=== PATIENT | female | born 1965 | race Caucasian/White ===

== ENCOUNTER → 2024-01-17 10:34 | Outpatient (REF) | payer OTHER, SELFPAY | LOC: HWRAD 10:34 | PROVIDERS: ATTENDING PHYSICIAN Emergency Medicine | DX: Z12.31 Encounter for screening mammogram for malignant neoplasm of breast (principal); N95.1 Menopausal and female climacteric states; Z78.0 Asymptomatic menopausal state | CPT/HCPCS: 77063; 77067; 77080 ==

== ENCOUNTER → 2024-01-21 14:24 | Outpatient (REF) | payer OTHER, SELFPAY | LOC: RAD 14:24 | PROVIDERS: ATTENDING PHYSICIAN Physician Assistant Medical | DX: J20.9 Acute bronchitis, unspecified (principal) | CPT/HCPCS: 71046 ==

== ENCOUNTER 2024-04-05 13:54 | Emergency (ER) | payer OTHER, SELFPAY ==
[2024-04-05 13:59] VITALS: BP 111/78
[2024-04-05 15:00] VITALS: BP 129/74
[2024-04-05] MEDS: VIBRAMYCIN 100 MG PO (16:14)
--- NOTE | 2024-04-05 16:17 | ED.GENMED ---
History of Present Illness
General
Chief Complaint: Skin Problem
Source: patient
Exam Limitations: none
Time Seen by Provider: 04/05/24 15:11
Nursing documentation reviewed up to this point in time: agreed with
History of Present Illness
History of Present Illness:
58-year-old female with past medical history of GERD IBS presenting to the emergency department today with concerns of red swollen left started few days ago gradually worsening mildly painful denies any specific inciting event or injuries. Denies
any fevers or systemic symptoms.
Past History
Past History
ED Past Medical History: Asthma, NIDDM, Hypothyroidism, Psychiatric, Other and Other
ED Past Surgical History: Cholecystectomy, Gynecological and Orthopedic
Social History
Tobacco: Non-smoker
Alcohol: Occasional
Drug: None
Personal:
Living: with family
Employment: Disabled
Family History
Family History: Other (Nothing significant)
Review of Systems
Review of Systems
Allergies reviewed?: Yes
All Other Systems: ROS reviewed and negative except as documented in HPI and ROS
Phy Exam
Physical Exam
Physical Exam:
GENERAL: Alert , in no apparent distress
EYE: pupils equal and reactive
NECK: Supple, no significant adenopathy.
ENT: o/p clr, mmm.
CARDIAC: Regular rate and rhythm .
LUNGS: Clear breath sounds bilaterally, no acute respiratory distress, no wheezes/rales/rhonchi
ABDOMEN: Soft, without focal tenderness, no r/g, no cvat
NEUROLOGICAL: Alert and oriented, no focal neuro deficits
SKIN: Warm and dry, skin intact.
MUSCULOSKELETAL: Redness and swelling mainly to the left fifth toe covers roughly 50% of the toe excluding the lateral portion mild tenderness. No breaks in the skin no fluctuance or induration., well perfused.
PSYCH: Normal and appropriate interaction.
Course
Orders/Labs/Results
Orders:
Orders
04/05/24 15:38
Doxycycline [Vibramycin] 100 mg PO NOW STA
CR Foot - Left Min 3 Views Urgent
Comment:
Reason For Exam: pinky toe redness pain
04/05/24 16:18
Bedside Glucose- Treatment ONCE
Abnormal Lab Results
04/05/24
16:45
POC Glucose 101 H mg/dl
(70-99)
Vital Signs
Initial and Last Documented VS:
Initial Vital Signs
Temp Pulse Resp BP Pulse Ox
98 F 62 18 111/78 98
04/05/24 13:59 04/05/24 13:59 04/05/24 13:59 04/05/24 13:59 04/05/24 13:59
Last Documented Vital Signs
Temp Pulse Resp BP Pulse Ox
98 F 62 18 111/78 98
04/05/24 13:59 04/05/24 13:59 04/05/24 13:59 04/05/24 13:59 04/05/24 13:59
MDM/Problems Addressed
MDM/Problems Addressed:
58-year-old female presenting to the emergency department with swollen red left pinky toe. Ongoing for the last few days no fevers no systemic symptoms. Concern the patient is diabetic patient treated for possible cellulitis. Advised to keep the
area clean and covered. Otherwise stable for discharge return precautions given. Patient was started on Doxy due to her multitude of allergies. Tolerated well here.
*Critical Care Note
Total Time (30-74mins, 75-104mins- exclusive of procedures): Not Applicable
ED Attending Note
-
Portions of this chart may have been created with voice recognition software.� Occasional wrong word or��sound alike� substitutions may have occurred due to the inherent limitations of voice recognition software.
Discharge Plan
Departure
Patient Disposition: Home (Routine Discharge)
Date of Disposition: 04/05/24
Time of Disposition: 17:43
Patient with high blood pressure during this ER visit?: No
Condition: Good
Covid-19: Not Applicable
Discharge Problem:
Infection of toe
Instructions: Cellulitis (Skin Infection), Adult (DC)
Prescriptions:
New
doxycycline hyclate 100 mg capsule
100 mg PO BID 7 Days Qty: 14 0RF
No Action
alprazolam 1 MG tablet
1 mg PO QPM
Patient Comments:
08/05/2022: last filled 06/30/22, 30 tabs for 30 days from [facility]#[id number]
levothyroxine 50 MCG tablet
50 mcg PO DAILY@0700
atorvastatin 10 MG tablet
10 mg PO DAILY
Jardiance 25 MG tablet
25 mg PO DAILY
Ozempic 0.25 MG/0.2 ML pen injector
1 mg SC SA
diphenhydramine HCl [Banophen] 50 MG capsule
50 mg PO HS PRN (Reason: sleep)
citalopram 20 MG tablet
20 mg PO DAILY
furosemide 20 MG tablet
20 mg PO DAILY
albuterol sulfate 1 PUFF HFA aerosol inhaler
2 puff inhalation R Q4 PRN (Reason: sob/wheezing)
polyethylene glycol 3350 17 GRAMS powder in packet
17 grams PO DAILY PRN (Reason: no bm>2 days) 14 Days Qty: 1 0RF
fenofibrate 160 mg Tablet
160 mg PO DAILY
Linzess 145 mcg Capsule
145 mcg PO DAILY
Trelegy Ellipta 200-62.5-25 mcg Blister With Device
1 inh INHALATION R DAILY
Motilium
20 mg PO TID
ondansetron 4 MG tablet,disintegrating
4 mg PO Q8 PRN (Reason: nausea/vomiting)
hydrocodone-acetaminophen 5-325 mg Tablet
1 tab PO Q6H PRN (Reason: moderate pain)
Patient Comments:
08/05/2022: last filled 07/04/22, 30 tabs for 10 days from [facility]#[id number]
Rx Instructions:
Pt. states not taking anymore.
Gummi Bear Multivitamin Tablet,Chewable
1 tab PO DAILY
mirtazapine [Remeron] 15 mg Tablet
15 mg PO HS
alum-mag hydroxide-simeth 400-400-40 mg/5 mL Suspension
10 ml PO BID PRN (Reason: heartburn) Qty: 0
benzonatate 100 mg capsule
100 mg PO TID PRN (Reason: cough) Qty: 20 0RF
lansoprazole [Prevacid] 30 mg Capsule,Delayed Release(Dr/Ec)
30 mg PO DAILY
dexamethasone 2 mg tablet
2 mg PO DAILY Qty: 15 0RF
Rx Instructions:
3 tabs daily for 2 days first dose 11/17/22, 2 tabs daily for 3 days, 1 tab daily for 3 days then stop
oxycodone-acetaminophen [Percocet] 5-325 mg Tablet
1 tab PO Q6HPRN PRN (Reason: pain) Qty: 5 0RF
dexamethasone 6 mg tablet
6 mg PO DAILY Qty: 4 0RF
benzonatate 100 mg capsule
100 mg PO TID PRN (Reason: Cough) Qty: 20 0RF
Referrals:
Maira Lucio MD [Family Provider] -
Activity Restrictions/Additional Instructions:
You came to the emergency department today with concerns of redness and swelling to the left toe. Please keep the area clean covered and follow close with the primary care doctor within 1 week for reassessment. Return to the emergency department
for any worsening, new or concerning symptoms.
Interventions
Interventions:
*Risk Screen - Suicide Last Done: 04/05/24 13:59
*General Assessment Last Done: 04/05/24 13:59
*Neglect/Abuse Screening Last Done: 04/05/24 13:59
Discharge Date and Time
Print Language: CAMBODIAN
[2024-04-05 16:47] LABS: Glucose - Point of Care 101 mg/dl (70-99)
[2024-04-05 17:00] VITALS: BP 118/74
[2024-04-05 18:31] VITALS: BP 115/76
== END 2024-04-05 18:32 | disposition home or self-care (01) ==
LOC: EMR 13:54
PROVIDERS: EMERGENCY PHYSICIAN Emergency Medicine; FAMILY PHYSICIAN Emergency Medicine
DX: L08.9 Local infection of the skin and subcutaneous tissue, unspecified (principal); J45.909 Unspecified asthma, uncomplicated; E11.9 Type 2 diabetes mellitus without complications; E03.9 Hypothyroidism, unspecified; K21.9 Gastro-esophageal reflux disease without esophagitis; K58.9 Irritable bowel syndrome, unspecified; Z90.49 Acquired absence of other specified parts of digestive tract
CPT/HCPCS: 99283; 73630; 82962

== ENCOUNTER 2025-04-07 06:29 | Day surgery (SDC) | payer OTHER, SELFPAY ==
[2025-04-07] VITALS (16 sets, daily range): BP systolic 110–128; BP diastolic 66–76; BMI 30.9
[2025-04-07 07:23] LABS: Glucose - Point of Care 111 mg/dl (70-99)
[2025-04-07] MEDS: LOW STRENGTH ASPIRIN 324 MG PO (07:24)
[2025-04-07] MEDS: NSS 269 ML IV (07:30)
--- NOTE | 2025-04-07 12:02 | ITS.CL.CATH ---
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
Cardiac Catheterization
Procedure Report:
LEFT HEART CATHETERIZATION
Date of Procedure: April 07, 2025
Referring: Dr. Camilo Nowak
PROCEDURES:
1. Left heart catheterization with coronary and single-plane left ventriculography
INDICATION: This is a 59-year-old female with a chronic history of substernal chest pressure. 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
hypothyroidism. She has a long history of substernal chest pressure and has been evaluated on multiple occasions with stress test in March 2020 and June of 2022. She was reevaluated by Dr. Nowak and is now referred for coronary angiography.
Patient had been tried on isosorbide mononitrate but stopped this medication after 4 days secondary to headache. She has multiple drug intolerances and allergies. Currently on no antianginal.
ACCESS: Right radial artery, 6 Vietnamese sheath
HEMODYNAMICS : (mmHg)
AO (s/d) : 126/79, 100
LV (s/d) : 128/10
LVEDP : 24
CORONARY FINDINGS
DOMINANCE: Normal
LEFT MAIN: Normal
LEFT ANTERIOR DESCENDING: The LAD arises normally from the left main and runs in the anterior interventricular groove. The LAD has only minor irregularities over its course and wraps completely around the apex supplying a significant portion of the
inferior wall.
CIRCUMFLEX: The circumflex is a medium caliber nondominant vessel. OM1 arises very proximally from the circumflex and runs in a distribution typical of a ramus intermedius. The AV circumflex terminates in a small bifurcating OM 2 that has a 90%
stenosis in its midportion just proximal to bifurcation into 2 small daughter branches.
RIGHT CORONARY ARTERY: The right coronary artery is a medium caliber dominant vessel with a 30% mid stenosis. The PDA is widely patent.
VENTRICULOGRAPHY: Left ventriculography is performed in MCKENZIE projection. The digital single-plane left ventricular ejection fraction is estimated at 60% and no regional wall motion maladies are noted.
SEDATION: 46 minutes of procedural sedation was utilized. An independent emergency medical tech was present to assist with and help manage the patient's level of consciousness and physiologic status.
RADIATION SUMMARY: Fluoro Time (min): 4.3, Dose (mGy): 379, DAP (Gy.cm2) : 26.8
Closure Device: TR band
CONCLUSIONS
1. Coronary artery disease involving a very small caliber distal obtuse marginal branch that bifurcates beyond the stenotic segment into 2 very small daughter branches.
2. Preserved LV systolic function
RECOMMENDATIONS
1. Patient is currently on no active antianginal medications. She had been treated with isosorbide mononitrate in the past but discontinued this medication about 4 to 5 days after starting secondary to bad headache. An attempt had also been made
to treat with low-dose Ranexa. I am not sure if formal beta-blockers would be a treatment option but would need to discuss with her primary pulmonary physician. At this point I have added 30 mg of isosorbide mononitrate back onto medical regimen
and asked the patient to take Tylenol 650-1000 mg orally about an hour before she takes the isosorbide. I told her to anticipate headache for about 2 weeks after initiation of this medication. The headache typically resolves after this time. I
have also added low-dose amlodipine. Blood pressures as an outpatient typically run around 100 mmHg. She should keep an eye on home blood pressures monitoring home readings 2-3 times per week. I am hoping that medical therapy may improve symptoms.
2. She is scheduled to see NAVIN Beavers in a few weeks. Would recommend further titration of antianginals at that time then close followup with Dr. Nowak
3. Aspirin 81mg daily
4. Strong consideration for PCSK9 inhibitor
5. Titrate antianginal medications as tolerated. I would add clopidogrel for a few weeks IF she continues to experience symptoms and PCI of the distal circumflex is considered. We would need to be sure she could / will tolerate dual antiplatelet
therapy
Copy to: Dr. Camilo Nowak
== END 2025-04-07 12:05 | disposition home or self-care (01) ==
LOC: CATH 06:29
PROVIDERS: ATTENDING PHYSICIAN Internal Medicine Interventional Cardiology; FAMILY PHYSICIAN Emergency Medicine; OTHER PHYSICIAN Internal Medicine Cardiovascular Disease
DX: I25.10 Atherosclerotic heart disease of native coronary artery without angina pectoris (principal); R07.9 Chest pain, unspecified; E11.9 Type 2 diabetes mellitus without complications; G47.30 Sleep apnea, unspecified; K21.9 Gastro-esophageal reflux disease without esophagitis; E78.5 Hyperlipidemia, unspecified; E03.9 Hypothyroidism, unspecified; Z79.82 Long term (current) use of aspirin; Z79.84 Long term (current) use of oral hypoglycemic drugs; Z79.85 Long-term (current) use of injectable non-insulin antidiabetic drugs
CPT/HCPCS: 99152; 99153; C1769; C1894; 82962; 93458; Q9967

== ENCOUNTER 2025-04-15 15:29 | Emergency (ER) | payer OTHER, SELFPAY ==
[2025-04-15 15:37] VITALS: BP 117/69
[2025-04-15 15:55] LABS: Hematocrit 40.1 % (37.0-47.0); Hemoglobin 14.4 g/dL (12.0-16.0); Mean Corp Hgb Conc. 35.9 g/dL (33.0-37.0); Mean Corpuscular Volume 87.9 fL (81.0-99.0); Nucleated Red Blood Cells % 0 %; Platelet Count 228 10^3/uL (130-400); Red Cell Dist. Width 13.2 % (11.5-14.5)
[2025-04-15 16:10] LABS: ALT (SGPT) 40 U/L (0-35); AST (SGOT) 33 U/L (14-36); Albumin 4.7 g/dl (3.5-5.0); Alkaline Phosphatase 98 U/L (38-126); Blood Urea Nitrogen 17 mg/dl (7-17); Calcium 9.7 mg/dl (8.4-10.2); Carbon Dioxide 26 mmol/L (22-30); Chloride 105 mmol/L (98-107); Glucose 106 mg/dl (70-99); Lipase 301 U/L (23-300); Potassium 4.2 mmol/L (3.5-5.1); Sodium 138 mmol/L (135-145); Total Protein 7.1 g/dl (6.3-8.2); eGFR > 60.00
[2025-04-15 16:15] LABS: Troponin I < 0.012 ng/ml
[2025-04-15 17:25] VITALS: BMI 31.8
[2025-04-15 17:33] VITALS: BP 135/69
[2025-04-15 18:00] VITALS: BP 110/76
[2025-04-15 19:00] VITALS: BP 114/74
--- NOTE | 2025-04-15 21:28 | ED.GENMED ---
History of Present Illness
General
Chief Complaint: Chest Pain
Source: patient
Exam Limitations: none
Time Seen by Provider: 04/15/25 19:37
Nursing documentation reviewed up to this point in time: agreed with
History of Present Illness
History of Present Illness:
Patient status post cardiac catheterization on April 07 secondary to persistent chest pain, presents to ED secondary to recurrent multiple episodes of similar chest pain since the procedure, each episode relieved with nitroglycerin sublingual tablet.
Patient reports 2 episodes lasting couple of minutes last , as well as 2 additional episodes on Sunday. Patient spoke with heeler machine office today and was advised to come to ED for an evaluation. Patient states the chest pain she is
experiencing currently, is the same chest pain which precipitated the cardiac catheterization. Denies new trauma. Denies shortness of breath. Denies nausea or vomiting. Denies dizziness. Denies recent change in medications. Denies recent
change in diet. Patient is currently taking amlodipine 2.5 mg daily. In addition, patient states that despite recommendation, she is unable to take Imdur secondary to side effect, i.e. severe headache.
Past History
Past History
ED Past Medical History: Asthma, NIDDM, Hypothyroidism, Psychiatric, Other and Other
ED Past Surgical History: Cholecystectomy, Gynecological and Orthopedic
Social History
Tobacco: Non-smoker
Alcohol: Occasional
Drug: None
Personal:
Living: with family
Employment: Disabled
Family History
Family History: Other (Nothing significant)
Review of Systems
Review of Systems
Allergies reviewed?: Yes
All Other Systems: ROS reviewed and negative except as documented in HPI and ROS
Constitutional: Reports no symptoms; Denies fever
Respiratory: Reports no symptoms; Denies trouble breathing
Cardiac: Reports chest pain
ABD/GI: Reports no symptoms; Denies nausea or vomiting
Musculoskeletal: Reports no symptoms
Skin: Reports no symptoms
Neurological: Reports no symptoms
Phy Exam
Physical Exam
Physical Exam:
Physical Exam
General: no apparent distress, not acutely ill. afebrile
Head: nc/at. eomi
Neck: supple. no meningeal signs.
Heart: s1/s2 regular rate and rhythm
Lungs: no acute respiratory distress. clear bilaterally. chest wall nontender to palpation
Abdomen: normal bowel sounds. not tender.
Neuro: alert and oriented x 3. no focal neurological deficits
Skin: no rash
Psychiatric: well kept. interactive and cooperative
Extremities: no edema. no calf tenderness.
Scores
Heart Score for Chest Pain Patients
STEMI patient?: No
History: Slightly or Non-Suspicious
ECG: Normal
Age: >45 - <65 years
Risk Factors: 1 or 2 Risk Factors
Troponin: </= Normal Limit
Heart Score for Chest Pain Patients: 2
Heart Score Risk: 2.5% MACE over next 6 weeks
Course
Orders/Labs/Results
Orders:
Orders
04/15/25 15:30
ECG [Electrocardiogram (*1)] Urgent
Reason for Study: Chest Pain
EKG- Treatment ONCE
04/15/25 15:44
Complete Blood Count/With Diff Urgent
Comprehensive Metabolic Panel Urgent
Lipase Urgent
Troponin I Urgent
Abnormal Lab Results
04/15/25
15:44
MCH 31.6 H pg
(27.0-31.0)
MPV 10.5 H fL
(7.4-10.4)
Glucose 106 H mg/dl
(70-99)
ALT 40 H U/L
(0-35)
Lipase 301 H U/L
(23-300)
04/15/25 15:44
04/15/25 15:44
Vital Signs
Initial and Last Documented VS:
Initial Vital Signs
Temp Pulse Resp BP Pulse Ox
98.5 F 73 20 117/69 97
04/15/25 15:37 04/15/25 15:37 04/15/25 15:37 04/15/25 15:37 04/15/25 15:37
Last Documented Vital Signs
Temp Pulse Resp BP Pulse Ox
98.5 F 57 16 114/74 98
04/15/25 15:37 04/15/25 19:30 04/15/25 19:30 04/15/25 19:00 04/15/25 21:29
MDM/Problems Addressed
MDM/Problems Addressed:
Patient with an unremarkable workup in ED, including EKG and troponin. In addition, patient remains chest pain-free. In fact, patient has not had any recurrent chest pain over the past 2 days.
Discussed with on-call cardiology, Dr. Lim. Recommends following: Increasing amlodipine to 2.5 mg twice daily and adding Toprol-XL 12.5 mg at bedtime. In addition, cardiology office will follow-up with patient for an appointment with her
primary heeler machine, Dr. Nowak.
Patient and spouse expressed understanding at time of discharge.
*Pulse Oximetry
SaO2: 98
Oxygen Mode of Delivery: Room air
Patient hypoxic: no
*EKG
Interpreted by ED Provider?: Yes
EKG Intrepretation Date: 04/15/25
Heart Rate: 60
Rate: normal
Rhythm: sinus
[place]: normal axis
*Critical Care Note
Total Time (30-74mins, 75-104mins- exclusive of procedures): Not Applicable
ED Attending Note
-
Portions of this chart may have been created with voice recognition software.� Occasional wrong word or��sound alike� substitutions may have occurred due to the inherent limitations of voice recognition software.
Discharge Plan
Departure
Patient Disposition: Home (Routine Discharge)
Date of Disposition: 04/15/25
Time of Disposition: 21:28
Patient with high blood pressure during this ER visit?: No
Discharge Problem:
Chest pain
Instructions: Chest Pain DCA Follow Up
Prescriptions:
New
metoprolol succinate [Toprol XL] 25 mg tablet extended release 24 hr
12.5 mg PO DAILY Qty: 14 0RF
No Action
alprazolam 1 MG tablet
1 mg PO QPM
Patient Comments:
08/05/2022: last filled 06/30/22, 30 tabs for 30 days from [facility]#[id number]
levothyroxine 50 MCG tablet
50 mcg PO DAILY@0700
atorvastatin 10 MG tablet
10 mg PO DAILY
Jardiance 25 MG tablet
25 mg PO DAILY
Ozempic 0.25 MG/0.2 ML pen injector
1 mg SC SA
diphenhydramine HCl [Banophen] 50 MG capsule
50 mg PO HS PRN (Reason: sleep)
citalopram 20 MG tablet
20 mg PO DAILY
furosemide 20 MG tablet
20 mg PO DAILY
albuterol sulfate 1 PUFF HFA aerosol inhaler
2 puff inhalation R Q4 PRN (Reason: sob/wheezing)
polyethylene glycol 3350 17 GRAMS powder in packet
17 grams PO DAILY PRN (Reason: no bm>2 days) 14 Days Qty: 1 0RF
fenofibrate 160 mg Tablet
160 mg PO DAILY
Linzess 145 mcg Capsule
145 mcg PO DAILY
Trelegy Ellipta 200-62.5-25 mcg Blister With Device
1 inh INHALATION R DAILY
Motilium
20 mg PO TID
ondansetron 4 MG tablet,disintegrating
4 mg PO Q8 PRN (Reason: nausea/vomiting)
hydrocodone-acetaminophen 5-325 mg Tablet
1 tab PO Q6H PRN (Reason: moderate pain)
Patient Comments:
08/05/2022: last filled 07/04/22, 30 tabs for 10 days from [facility]#[id number]
Rx Instructions:
Pt. states not taking anymore.
Gummi Bear Multivitamin Tablet,Chewable
1 tab PO DAILY
mirtazapine [Remeron] 15 mg Tablet
15 mg PO HS
alum-mag hydroxide-simeth 400-400-40 mg/5 mL Suspension
10 ml PO BID PRN (Reason: heartburn) Qty: 0
benzonatate 100 mg capsule
100 mg PO TID PRN (Reason: cough) Qty: 20 0RF
lansoprazole [Prevacid] 30 mg Capsule,Delayed Release(Dr/Ec)
30 mg PO DAILY
dexamethasone 2 mg tablet
2 mg PO DAILY Qty: 15 0RF
Rx Instructions:
3 tabs daily for 2 days first dose 11/17/22, 2 tabs daily for 3 days, 1 tab daily for 3 days then stop
oxycodone-acetaminophen [Percocet] 5-325 mg Tablet
1 tab PO Q6HPRN PRN (Reason: pain) Qty: 5 0RF
dexamethasone 6 mg tablet
6 mg PO DAILY Qty: 4 0RF
benzonatate 100 mg capsule
100 mg PO TID PRN (Reason: Cough) Qty: 20 0RF
doxycycline hyclate 100 mg capsule
100 mg PO BID 7 Days Qty: 14 0RF
amlodipine 2.5 mg tablet
2.5 mg PO DAILY 30 Days Qty: 30 10RF
isosorbide mononitrate 30 mg tablet extended release 24 hr
30 mg PO DAILY 30 Days Qty: 30 10RF
aspirin 81 mg tablet,chewable
81 mg PO DAILY Qty: 30 10RF
Referrals:
Maira Lucio MD [Family Provider, Internal Medicine]
Camilo Nowak MD [Active, Cardiology]
Activity Restrictions/Additional Instructions:
As discussed, please follow-up with your primary care physician
Interventions
Interventions:
*Risk Screen - Suicide Last Done: 04/15/25 17:25
*General Assessment Last Done: 04/15/25 17:25
*Neglect/Abuse Screening Last Done: 04/15/25 15:37
*ED- Fall Risk Assessment Last Done: 04/15/25 15:37
*ED COVID-19 Vaccine History Last Done: 04/15/25 17:25
*Nursing Disposition Last Done: 04/15/25 22:03
ED- Cardiac Assessment Last Done: 04/15/25 17:25
Discharge Date and Time
Discharge Date/Time: 04/15/25 22:03
Print Language: GABONESE
== END 2025-04-15 22:03 | disposition home or self-care (01) ==
LOC: EMR 15:29
PROVIDERS: Emergency Medicine; EMERGENCY PHYSICIAN Emergency Medicine; FAMILY PHYSICIAN Emergency Medicine
DX: R07.89 Other chest pain (principal); J45.909 Unspecified asthma, uncomplicated; E11.9 Type 2 diabetes mellitus without complications; E03.9 Hypothyroidism, unspecified; Z79.899 Other long term (current) drug therapy; Z90.49 Acquired absence of other specified parts of digestive tract
CPT/HCPCS: 99283; 80053; 83690; 84484; 85025; 93005

== ENCOUNTER 2025-05-09 12:57 | Emergency (ER) | payer OTHER, SELFPAY ==
[2025-05-09 12:59] VITALS: BP 130/85
[2025-05-09 13:22] LABS: Hematocrit 42.1 % (37.0-47.0); Hemoglobin 14.8 g/dL (12.0-16.0); Mean Corp Hgb Conc. 35.2 g/dL (33.0-37.0); Mean Corpuscular Volume 87.2 fL (81.0-99.0); Nucleated Red Blood Cells % 0 %; Platelet Count 212 10^3/uL (130-400); Red Cell Dist. Width 12.7 % (11.5-14.5)
[2025-05-09 13:40] LABS: ALT (SGPT) 32 U/L (0-35); AST (SGOT) 32 U/L (14-36); Albumin 4.7 g/dl (3.5-5.0); Alkaline Phosphatase 78 U/L (38-126); Blood Urea Nitrogen 17 mg/dl (7-17); Calcium 9.9 mg/dl (8.4-10.2); Carbon Dioxide 26 mmol/L (22-30); Chloride 106 mmol/L (98-107); Glucose 179 mg/dl (70-99); Potassium 4.6 mmol/L (3.5-5.1); Sodium 139 mmol/L (135-145); Total Protein 6.9 g/dl (6.3-8.2); eGFR > 60.00
[2025-05-09 13:51] LABS: Troponin I < 0.012 ng/ml
--- NOTE | 2025-05-09 15:48 | ED.GENMED ---
History of Present Illness
General
Chief Complaint: Breathing Problem
Source: patient
Exam Limitations: none
Time Seen by Provider: 05/09/25 15:46
Nursing documentation reviewed up to this point in time: agreed with
History of Present Illness
History of Present Illness:
59-year-old female with history of status post cardiac catheterization on April 07 secondary to persistent chest pain, presents to ED secondary to recurrent multiple episodes of similar chest pain since the procedure, last visit for this here was on
04/15/25 with neg workup. Hx asthma, Bilateral PE 08/2020. No longer anticoagulated. Patient states her left lower lateral rib
Area of pain started 2 days ago, no recollection of overuse or injury. She states it hurts more if she presses on the area. No change in pain with movement. She denies shortness of breath but it hurts to take a deep breath. She denies feeling
weak or dizzy. Denies palpitations. No recent travel, denies pain in her legs/calves
Past History
Past History
ED Past Medical History: Asthma, NIDDM, Hypothyroidism, Psychiatric, Other and Other
ED Past Surgical History: Cholecystectomy, Gynecological and Orthopedic
Social History
Tobacco: Non-smoker
Alcohol: Occasional
Drug: None
Personal:
Living: with family
Employment: Disabled
Family History
Family History: Other (Nothing significant)
Review of Systems
Review of Systems
Allergies reviewed?: Yes
All Other Systems: ROS reviewed and negative except as documented in HPI and ROS
Constitutional: Denies fever
Respiratory: Denies cough or trouble breathing
Musculoskeletal: Reports other (Pain left lateral lower rib cage area)
Skin: Reports no symptoms
Phy Exam
Physical Exam
Physical Exam:
GENERAL: No acute distress. A&Ox3.
CONSTITUTIONAL: Afebrile.
EYES: clear, conjunctivae normal
ENMT: moist mucus membranes
RESPIRATORY: Regular respirations, nonlabored, lungs clear.
CARDIOVASCULAR: Regular rate and rhythm, no murmurs, no rubs.
GI: Soft, nontender, normal BS
MUSCULOSKELETAL: Tender to palpate left lateral lower ribs, no discoloration here. Palpation of this area exactly immediately reproduces the pain. Moves with ease. Well perfused.
SKIN: Warm, dry, pink
PSYCH: Normal mood and affect. Well kept, interactive and appropriate
NEUROLOGIC: Awake, alert and oriented. No focal neurological deficits
Scores
Heart Failure Risk
Heart Failure Risk Score: Not Applicable
Course
Orders/Labs/Results
Orders:
Orders
05/09/25 13:02
Electrocardiogram (*1) Urgent
Reason for Study: Shortness of Breath
EKG- Treatment ONCE
05/09/25 13:11
Complete Blood Count/With Diff Urgent
Comprehensive Metabolic Panel Urgent
Troponin I Urgent
05/09/25 16:09
D-Dimer Urgent
05/09/25 16:40
CR Chest - 2 Views Urgent
Comment:
Reason For Exam: Pain right lateral lower ribs
Abnormal Lab Results
05/09/25
13:11
MPV 10.5 H fL
(7.4-10.4)
Immature Gran % 0.6 H %
(0-0.5)
Glucose 179 H mg/dl
(70-99)
05/09/25 13:11
05/09/25 13:11
Vital Signs
Initial and Last Documented VS:
Initial Vital Signs
Temp Pulse Resp BP Pulse Ox
98.4 F 69 18 130/85 99
05/09/25 12:59 05/09/25 12:59 05/09/25 12:59 05/09/25 12:59 05/09/25 12:59
Last Documented Vital Signs
Temp Pulse Resp BP Pulse Ox
98.4 F 64 18 116/74 97
05/09/25 12:59 05/09/25 17:32 05/09/25 12:59 05/09/25 18:01 05/09/25 17:32
MDM/Problems Addressed
Differential Diagnosis Includes:
Contusion rib cage, rib sprain,
MDM/Problems Addressed:
59-year-old female with history of status post cardiac catheterization on April 07 secondary to persistent chest pain, presents to ED secondary to recurrent multiple episodes of similar chest pain since the procedure, last visit for this here was on
04/15/25 with neg workup. Hx asthma, Bilateral PE 08/2020. No longer anticoagulated. Patient states her left lower lateral rib
Area of pain started 2 days ago, no recollection of overuse or injury. She states it hurts more if she presses on the area. No change in pain with movement. She denies shortness of breath but it hurts to take a deep breath. She denies feeling
weak or dizzy. Denies palpitations. No recent travel, denies pain in her legs/calves
EKG NSR
CBC, CMP normal
D-dimer normal
Lungs CTA, exam is most consistent with musculoskeletal rib pain
5:45 PM:
Chest x-ray normal. Patient reassured
*Pulse Oximetry
SaO2: 99
Oxygen Mode of Delivery: Room air
Patient hypoxic: no
*EKG
EKG Intrepretation Date: 05/09/25
Interpretation: normal
Heart Rate: 58
Rate: normal
Rhythm: sinus
[place]: normal axis
Interval: normal interval
QRS Pattern: normal QRS
Ischemia: no ischemia
*Critical Care Note
Total Time (30-74mins, 75-104mins- exclusive of procedures): Not Applicable
ED Attending Note
-
Portions of this chart may have been created with voice recognition software.� Occasional wrong word or��sound alike� substitutions may have occurred due to the inherent limitations of voice recognition software.
Discharge Plan
Departure
Patient Disposition: Home (Routine Discharge)
Date of Disposition: 05/09/25
Time of Disposition: 17:48
Patient with high blood pressure during this ER visit?: No
Condition: Good
Discharge Problem:
Rib pain on left side
Instructions: Musculoskeletal Pain
Prescriptions:
No Action
alprazolam 1 MG tablet
1 mg PO QPM
Patient Comments:
08/05/2022: last filled 06/30/22, 30 tabs for 30 days from [id number]
levothyroxine 50 MCG tablet
50 mcg PO DAILY@0700
atorvastatin 10 MG tablet
10 mg PO DAILY
Jardiance 25 MG tablet
25 mg PO DAILY
Ozempic 0.25 MG/0.2 ML pen injector
1 mg SC SA
diphenhydramine HCl [Banophen] 50 MG capsule
50 mg PO HS PRN (Reason: sleep)
citalopram 20 MG tablet
20 mg PO DAILY
furosemide 20 MG tablet
20 mg PO DAILY
albuterol sulfate 1 PUFF HFA aerosol inhaler
2 puff inhalation R Q4 PRN (Reason: sob/wheezing)
polyethylene glycol 3350 17 GRAMS powder in packet
17 grams PO DAILY PRN (Reason: no bm>2 days) 14 Days Qty: 1 0RF
fenofibrate 160 mg Tablet
160 mg PO DAILY
Linzess 145 mcg Capsule
145 mcg PO DAILY
Trelegy Ellipta 200-62.5-25 mcg Blister With Device
1 inh INHALATION R DAILY
Motilium
20 mg PO TID
ondansetron 4 MG tablet,disintegrating
4 mg PO Q8 PRN (Reason: nausea/vomiting)
hydrocodone-acetaminophen 5-325 mg Tablet
1 tab PO Q6H PRN (Reason: moderate pain)
Patient Comments:
08/05/2022: last filled 07/04/22, 30 tabs for 10 days from [id number]
Rx Instructions:
Pt. states not taking anymore.
Gummi Bear Multivitamin Tablet,Chewable
1 tab PO DAILY
mirtazapine [Remeron] 15 mg Tablet
15 mg PO HS
alum-mag hydroxide-simeth 400-400-40 mg/5 mL Suspension
10 ml PO BID PRN (Reason: heartburn) Qty: 0
benzonatate 100 mg capsule
100 mg PO TID PRN (Reason: cough) Qty: 20 0RF
lansoprazole [Prevacid] 30 mg Capsule,Delayed Release(Dr/Ec)
30 mg PO DAILY
dexamethasone 2 mg tablet
2 mg PO DAILY Qty: 15 0RF
Rx Instructions:
3 tabs daily for 2 days first dose 11/17/22, 2 tabs daily for 3 days, 1 tab daily for 3 days then stop
oxycodone-acetaminophen [Percocet] 5-325 mg Tablet
1 tab PO Q6HPRN PRN (Reason: pain) Qty: 5 0RF
dexamethasone 6 mg tablet
6 mg PO DAILY Qty: 4 0RF
benzonatate 100 mg capsule
100 mg PO TID PRN (Reason: Cough) Qty: 20 0RF
doxycycline hyclate 100 mg capsule
100 mg PO BID 7 Days Qty: 14 0RF
amlodipine 2.5 mg tablet
2.5 mg PO DAILY 30 Days Qty: 30 10RF
isosorbide mononitrate 30 mg tablet extended release 24 hr
30 mg PO DAILY 30 Days Qty: 30 10RF
aspirin 81 mg tablet,chewable
81 mg PO DAILY Qty: 30 10RF
metoprolol succinate [Toprol XL] 25 mg tablet extended release 24 hr
12.5 mg PO DAILY Qty: 14 0RF
Referrals:
Maira Lucio MD [Family Provider, Internal Medicine] - As needed
Activity Restrictions/Additional Instructions:
As we discussed, your D-dimer is negative, your chest x-ray is normal.
Nothing worrisome in your workup here today.
This may be musculoskeletal rib cage pain.
Tylenol ibuprofen as needed for pain
Interventions
Interventions:
*Risk Screen - Suicide Last Done: 05/09/25 13:01
*General Assessment Last Done: 05/09/25 12:59
*Neglect/Abuse Screening Last Done: 05/09/25 12:59
*ED- Fall Risk Assessment Last Done: 05/09/25 18:01
*ED COVID-19 Vaccine History Last Done: 05/09/25 18:01
*Nursing Disposition Last Done: 05/09/25 18:01
ED- Cardiac Assessment Last Done: 05/09/25 18:01
ED- Pulmonary Assessment Last Done: 05/09/25 18:01
Discharge Date and Time
Discharge Date/Time: 05/09/25 18:02
Print Language: UPPER SORBIAN
[2025-05-09 16:33] LABS: D-Dimer < 0.27 ug/mlFEU (0.00-0.50)
[2025-05-09 18:01] VITALS: BP 116/74
== END 2025-05-09 18:02 | disposition home or self-care (01) ==
LOC: EMR 12:57
PROVIDERS: Emergency Medicine; EMERGENCY PHYSICIAN Emergency Medicine; FAMILY PHYSICIAN Emergency Medicine
DX: R07.81 Pleurodynia (principal); J45.909 Unspecified asthma, uncomplicated; E11.9 Type 2 diabetes mellitus without complications; E03.9 Hypothyroidism, unspecified; Z90.49 Acquired absence of other specified parts of digestive tract
CPT/HCPCS: 99283; 71046; 80053; 84484; 85025; 85379; 93005